=== PATIENT | female | born 1985 | race Caucasian/White ===

== ENCOUNTER 2018-02-02 07:56 | Emergency (ER) | payer MEDICAID ==
[~2018-02-02] VITALS: Ht 157.5 cm; Wt 98.4 kg
[~2018-02-02 07:56] MED LIST: IBUP-1222 PO; OXYC-302 PO; PREN1TAB60 PO
[2018-02-02 07:57] VITALS: BP 123/79
[2018-02-02] MEDS ORDERED: DEXAMETHASONE 4 MG TABLET ONE (08:50)
[2018-02-02] MEDS ORDERED: DEXAMETHASONE 4 MG TABLET PO ONE (09:00)
== END 2018-02-02 09:10 | disposition home or self-care (01) ==
LOC: ED 09:00
DX: J02.0 Streptococcal pharyngitis (principal)
CPT/HCPCS: 99283